=== PATIENT | female | born 1955 | race Caucasian/White ===

== ENCOUNTER 2018-10-03 06:02 | Day surgery (SDC) | payer BC, OTHER ==
[~2018-10-03] VITALS: Ht 157.5 cm; Wt 54.9 kg
--- NOTE | 2018-10-03 07:28 | PREAC ---
Date/Time of Note Date/Time of Note DATE: 10/03/18 TIME: 07:26 Anesthesia Eval and Record Evaluation Time Pre-Procedure Interview DATE: 10/03/18 TIME: 07:26 Age 63 Sex female NPO: 8 hrs Preoperative diagnosis anemia Planned procedure EGD colonoscopy Past Medical History Past Medical History: Includes Cardio: HTN, Dyslipidemia Endo: Diabetes Musculoskeletal: Rheumatoid arthritis Surgery & Anesthesia Issues No known issue Meds Anticoagulation: No Beta Carrie within 24 hr: No Reason Beta Carrie not given: Pt. not on B-Carrie Meds reviewed: Yes Allergies Allergies Reviewed: Yes Labs/Studies Labs Reviewed: Reviewed by anesthesiologist test: N/A Studies: ECG (n/a), CXR (n/a) Pre-procedure Exam Airway: Adequate mouth opening Mallampati: Mallampati I Teeth: Normal Lung: Normal Heart: Normal ASA Physical Status ASA physical status: 2 Emergency: None Planned Anesthetic General/MAC: MAC Planned Pain Management Parenteral pain med Pre-operative Attestations Prior to commencing anesthesia and surgery, the patient was re-evaluated, there was verification of: *The patient's identity *The results of appropriate recent lab work and preoperative vital signs *The above evaluation not changing prior to induction *Anesthetic plan, risk benefits, alternative and complications discussed with patient/family; questions answered; patient/family understands, accepts and wishes to proceed. RUFUS OWENS MD Oct 03, 2018 07:28
[2018-10-03] MEDS ORDERED: ONDANSETRON 4 MG INJ IV PRN (07:30)
[2018-10-03] MEDS ORDERED: LABETALOL HCL 20MG INJ IV PRN (07:30)
[2018-10-03] MEDS ORDERED: PROPOFOL 20 ML ONE (07:30)
[2018-10-03] MEDS ORDERED: hydrALAzine 20 MG INJ IV PRN (07:30)
[2018-10-03] MEDS ORDERED: FENTAnyl 50 MCG/ML VIAL ONE (07:31)
[2018-10-03] MEDS ORDERED: METOPROLOL (07:35)
[2018-10-03] MEDS ORDERED: HUMIRA (07:35)
[2018-10-03] MEDS ORDERED: FOLIC ACID (07:35)
[2018-10-03] MEDS ORDERED: ATORVASTATIN (07:35)
[2018-10-03] MEDS ORDERED: PREDNISONE (07:35)
[2018-10-03] MEDS ORDERED: LANTUS (07:35)
[2018-10-03] MEDS ORDERED: FERROUS SULFATE (07:35)
[2018-10-03] MEDS ORDERED: FISH OIL (07:35)
[2018-10-03 07:41] VITALS: BP 188/83; PULSE 112; RESP 18
--- NOTE | 2018-10-03 09:12 | PAC ---
Date/Time of Note Date/Time of Note DATE: 10/03/18 TIME: 09:11 Post-Anesthesia Notes Post-Anesthesia Note Last documented vital signs Vital Signs Date Temp Pulse Resp B/P (MAP) Pulse Ox O2 O2 Flow FiO2 Time Delivery Rate 10/03/18 98.5 112 18 188/83 97 Room Air 07:41 (118) Activity: WNL Respiratory function: WNL Cardiovascular function: WNL Mental status: Baseline Pain reasonably controlled: Yes Hydration appropriate: Yes Nausea/Vomiting absent: No RUFUS OWENS MD Oct 03, 2018 09:12
== END 2018-10-03 11:06 | disposition home or self-care (01) ==
LOC: GIL 06:02
PROVIDERS: ATTEND Internal Medicine Gastroenterology
DX: K29.30 Chronic superficial gastritis without bleeding (principal); K64.4 Residual hemorrhoidal skin tags; E11.9 Type 2 diabetes mellitus without complications; I10 Essential (primary) hypertension; E78.5 Hyperlipidemia, unspecified; M06.9 Rheumatoid arthritis, unspecified; D50.9 Iron deficiency anemia, unspecified
CPT/HCPCS: 43239; 45378; 82962; 88305; 88312; J3010; Z7610